=== PATIENT | female | born 2000 | race Caucasian/White ===

== ENCOUNTER 2020-04-09 20:31 | Emergency (ER) | payer MEDICAID ==
[~2020-04-09] VITALS: Ht 160 cm; Wt 66.0 kg
[2020-04-09 20:47] VITALS: BP 122/89
== END 2020-04-09 23:40 | disposition home or self-care (01) ==
LOC: ER 20:31
DX: O26.891 Other specified pregnancy related conditions, first trimester (principal); Z3A.01 Less than 8 weeks gestation of pregnancy
CPT/HCPCS: 36415; 84702; 99283

== ENCOUNTER 2020-08-13 07:31 | Emergency (ER) | payer MEDICAID ==
[~2020-08-13] VITALS: Ht 160 cm; Wt 66.0 kg
[2020-08-13] MEDS ORDERED: ACETAMINOPHEN 325MG TABLET PO PRN (08:00)
[2020-08-13 08:49] LABS: BASOPHILS % 0.3 % (0.0-2.0); EOSINOPHILS % 1.4 % (0.0-5.0); HEMATOCRIT. 34.8 % (36.0-48.0); HEMOGLOBIN. 11.7 g/dL (12.0-16.0); LYMPHOCYTES % 13.4 % (20.0-50.0); MEAN CORPUSCULAR VOLUME 80.1 fL (81.0-99.0); MEAN PLATELET VOLUME 9.8 fl (7.4-10.4); NEUTROPHILS % 76.9 % (40.0-76.0); PLATELET 256 x1000/uL (130-400); RED BLOOD CELL COUNT 4.34 mill/uL (4.2-5.4); RED CELL DISTRIBUTION WIDTH 15.9 % (11.6-14.6)
[2020-08-13 08:55] LABS: CHLORIDE 106 mEq/L (98-107)
[2020-08-13 09:17] LABS: B-HCG QUANTITATIVE 64414 mIU/mL (<3)
[2020-08-13 11:34] VITALS: BP 114/56
== END 2020-08-13 11:35 | disposition home or self-care (01) ==
LOC: ER 07:55
DX: O20.0 Threatened abortion (principal); O26.891 Other specified pregnancy related conditions, first trimester; I49.9 Cardiac arrhythmia, unspecified; Z3A.01 Less than 8 weeks gestation of pregnancy
CPT/HCPCS: 36415; 76801; 80048; 84702; 85025; 86850; 86900; 93005; 99285

== ENCOUNTER 2020-08-14 20:31 | Emergency (ER) | payer MEDICAID ==
[~2020-08-14] VITALS: Ht 160 cm; Wt 66.0 kg
[2020-08-14 20:36] VITALS: BP 106/71
== END 2020-08-15 02:42 | disposition left against medical advice (07) ==
LOC: ER 20:31
DX: R11.2 Nausea with vomiting, unspecified (principal); Z53.21 Procedure and treatment not carried out due to patient leaving prior to being seen by health care provider
CPT/HCPCS: 93005

== ENCOUNTER 2021-08-28 20:06 | Observation (INO) | payer MEDICAID ==
[~2021-08-28] VITALS: Ht 160 cm; Wt 77.1 kg
[2021-08-28] MEDS ORDERED: PRE NATAL VITAMIN (21:05)
[2021-08-28] MEDS ORDERED: iron (21:05)
== END 2021-08-28 21:45 | disposition home or self-care (01) ==
LOC: UNDOADMOB 20:06 → 8 EST LDRP 20:06
PROVIDERS: ADMIT Obstetrics & Gynecology; ATTEND Obstetrics & Gynecology
DX: O99.891 Other specified diseases and conditions complicating pregnancy (principal); M54.59 Other low back pain; O62.9 Abnormality of forces of labor, unspecified; Z3A.36 36 weeks gestation of pregnancy
CPT/HCPCS: 59025; 76815; 76818; G0378; 99281

== ENCOUNTER 2024-02-24 18:51 | Emergency (ER) | payer MEDICAID, OTHER ==
[~2024-02-24] VITALS: Ht 162.6 cm; Wt 76.2 kg
[~2024-02-24 18:51] MED LIST: PRE NATAL VITAMIN; iron
[2024-02-24 19:00] VITALS: TEMP 98.6; O2SAT 100
[2024-02-24 19:34] LABS: CLARITY URINE TURBID (CLEAR); COLOR URINE YELLOW (YELLOW); GLUCOSE URINE NEGATIVE (NEGATIVE); KETONES URINE NEGATIVE (NEGATIVE); LEUKOCYTE ESTERASE URINE NEGATIVE (NEGATIVE); NITRITE URINE NEGATIVE (NEGATIVE); OCCULT BLOOD URINE 3+ (NEGATIVE); PROTEIN URINE NEGATIVE (NEGATIVE); SPECIFIC GRAVITY URINE 1.022 (1.005-1.030); UROBILINOGEN URINE 0.2 E.U./dL (0.2-1.0)
[2024-02-24 19:54] LABS: BACTERIA URINE 1+; RBC URINE TNTC /hpf (0-2); SQUAMOUS EPITHELIAL CELL URINE 1+ /lpf (RARE/1+)
[2024-02-24 20:09] LABS: BASOPHILS % 0.4 % (0.0-2.0); EOSINOPHILS % 6.1 % (0.0-5.0); HEMATOCRIT. 38.8 % (36.0-48.0); HEMOGLOBIN. 12.8 g/dL (12.0-16.0); LYMPHOCYTES % 23.8 % (20.0-50.0); MEAN CORPUSCULAR VOLUME 81.9 fL (81.0-99.0); MEAN PLATELET VOLUME 9.5 fl (7.4-10.4); MONOCYTES % 8.8 % (2.0-8.0); NEUTROPHILS % 60.9 % (40.0-76.0); PLATELET 308 x1000/uL (130-400); RED BLOOD CELL COUNT 4.73 mill/uL (4.2-5.4); RED CELL DISTRIBUTION WIDTH 14.5 % (11.6-14.6); WHITE BLOOD COUNT 9.4 x1000/uL (4.5-11.0)
[2024-02-24 20:19] LABS: CHLORIDE 109 mEq/L (98-107); POTASSIUM 3.8 mEq/L (3.5-5.1); SODIUM 141 mEq/L (136-145)
[2024-02-24 20:20] LABS: CARBON DIOXIDE 26 mEq/L (21-32)
[2024-02-24 20:21] LABS: CALCIUM 9.6 mg/dL (8.7-10.4)
[2024-02-24 20:25] LABS: CREATININE 0.7 mg/dL (0.6-1.0); GLUCOSE 85 mg/dL (70-105)
[2024-02-24 20:26] LABS: UREA NITROGEN BLOOD 10 mg/dL (9-23)
[2024-02-24 20:27] LABS: ALANINE AMINOTRANSFERASE 12 IU/L (10-49); ALBUMIN 4.8 g/dL (3.2-4.8); ASPARTATE AMINOTRANSFERASE 15 IU/L (<34); B-HCG QUANTITATIVE 2 mIU/mL (<3)
[2024-02-24 20:28] LABS: BILIRUBIN DIRECT < 0.1 mg/dL (<=3.0); BILIRUBIN TOTAL 0.2 mg/dL (0.1-1.0); PROTEIN TOTAL 7.5 g/dL (6.0-8.3)
[2024-02-24 21:21] VITALS: BP 136/90; PULSE 81; RESP 16
== END 2024-02-24 21:23 | disposition home or self-care (01) ==
LOC: ER 18:51
DX: O20.0 Threatened abortion (principal); Z3A.12 12 weeks gestation of pregnancy
CPT/HCPCS: 36415; 76801; 80048; 80076; 81003; 84702; 85025; 86850; 86900; 99284